=== PATIENT | male | born 1965 | race Caucasian/White ===

== ENCOUNTER 2019-05-14 10:19 | Outpatient (CLI) | payer OTHER, SELFPAY ==
--- NOTE | ~2019-05-14 | XR_ITS ---
XR chest 2V 05/14/2019 10:45 Indication: Acute bronchitis. Cough and wheezing. Procedure: 2 view chest Comparison: No prior studies for comparison. Findings: There is left basilar atelectasis. No focal pneumonia, edema or effusion. No pneumothorax. No acute osseous abnormality. Mild thoracic spondylosis. Impression: 1: Left basilar atelectasis. Reviewed, dictated and finalized at location A. Impression: 1: Left basilar atelectasis.
== END 2019-05-14 10:20 | disposition home or self-care (01) ==
LOC: CHSIMG 10:23
PROVIDERS: PCP Family Medicine; Visit Provider Family Medicine
DX: J20.9 Acute bronchitis, unspecified (principal)
CPT/HCPCS: 71046

== ENCOUNTER 2021-04-06 14:44 | Outpatient (CLI) | payer OTHER, SELFPAY ==
[2021-04-06 15:37] LABS: SARS-CoV-2 Ag Positive (Negative)
== END 2021-04-06 14:45 | disposition home or self-care (01) ==
LOC: CHSLAB 14:46
PROVIDERS: PCP Family Medicine; Visit Provider Nurse Practitioner Family
DX: U07.1 COVID-19 (principal); J06.9 Acute upper respiratory infection, unspecified
CPT/HCPCS: 87426; C9803

== ENCOUNTER 2023-08-28 10:43 | Outpatient (CLI) | payer OTHER, SELFPAY ==
--- NOTE | ~2023-08-28 | CT_ITS ---
EXAMINATION: CT soft tissue neck w con DATE: 08/28/2023 12:08 INDICATION: Throat mass. TECHNIQUE: Computed tomography (CT) of the neck was performed with 75 mL Omnipaque-350 intravenous co ntrast. Automated exposure control and iterative reconstruction technique were employed. The dose-lara gth product was 578.17 mGy-cm. COMPARISON: None FINDINGS: There is mild emphysema. There is asymmetric enlargement of right palatine tonsil. There is a 3.4 x 3.2 cm right high internal jugular chain lymph node. There is an 11 x 14 mm high right inter nal jugular chain lymph node. Partially visualized is lymphadenopathy in the aorticopulmonary window with the largest node measuring at least 2.1 x 1.2 cm. There is mucosal thickening in the paranasal s inuses. The mastoid air cells are normal. There is severe cervical spondylosis. IMPRESSION: 1. 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 Ultr asound-guided core needle biopsy is recommended. 2. Asymmetric enlargement of right palatine tonsil suspicious for primary malignancy. 3. Partially visualized mediastinal lymphadenopathy suspicious for metastatic disease. Chest CT with contrast is recommended. 4. Mild emphysema. Reviewed, dictated and finalized at location A. IMPRESSION: 1. High right internal jugular chain lymphadenopathy, likely metastatic squamou s cell carcinoma. Ultrasound-guided core needle biopsy is recommended. 2. Asymmetric enlargement of right palatine tonsil suspicious for primary malig suzanne. 3. Partially visualized mediastinal lymphadenopathy suspicious for metastatic d isease. Chest CT with contrast is recommended. 4. Mild emphysema.
[2023-08-28 11:24] LABS: Estimated Glomerular Filt Rate > 60
== END 2023-08-28 10:44 | disposition home or self-care (01) ==
PROVIDERS: PCP Family Medicine; Visit Provider Nurse Practitioner Family
DX: J39.2 Other diseases of pharynx (principal); R59.0 Localized enlarged lymph nodes; J35.1 Hypertrophy of tonsils; J43.9 Emphysema, unspecified
CPT/HCPCS: 70491; Q9967

== ENCOUNTER 2023-08-30 12:31 | Outpatient (CLI) | payer OTHER, SELFPAY ==
--- NOTE | ~2023-08-30 | CT_ITS ---
EXAMINATION: CT diagnostic chest w con DATE: 08/30/2023 13:04 INDICATION: METATSTATIC DISEASE OF NECK, ABNORMAL CT, BALATINE TONSIL MA TECHNIQUE: Computed tomography (CT) of the chest was performed with 100 mL Omnipaque-350 intravenous contrast. Additional 3D reconstructions utilizing coronal maximum intensity projection (MIP) were per formed. Automated exposure control and iterative reconstruction technique were employed. The dose-lara gth product was 284.64 mGy-cm. COMPARISON: None FINDINGS: Mild paraseptal and upper lung predominant emphysema. Mild groundglass opacities and some septal line thickening in the dependent lungs. Indeterminate 4-5 mm nodule at the lateral basilar left lower lob e. No pleural effusion. Heart size is normal. Small amount of atherosclerotic coronary artery calcifi c location. No pericardial effusion. There are enlarged mediastinal lymph nodes, the largest at the A P window measuring 3.1 x 2.9 cm which is concerning for metastatic disease or lymphoma. Thoracic aort a is normal in caliber with no dissection. Visualized upper abdomen is unremarkable. Moderate lower c ervical spondylosis with chronic mild anterior wedging at T8-L1. IMPRESSION: 1. Mediastinal lymphadenopathy measuring up to 3.1 x 2.9 cm concerning for malignancy either metastat ic or lymphoma. 2. Mild emphysema with indeterminate 4 x 5 mm left lower lobe nodule. Would recommend 1 year follow-u p low-dose noncontrast chest CT for further evaluation. 3. Mild groundglass opacities in the bilateral lower lobes and favor atelectasis over mild pulmonary edema or pneumonia. Reviewed, dictated and finalized at location B. IMPRESSION: 1. Mediastinal lymphadenopathy measuring up to 3.1 x 2.9 cm concerning for belinda gnancy either metastatic or lymphoma. 2. Mild emphysema with indeterminate 4 x 5 mm left lower lobe nodule. Would rec ommend 1 year follow-up low-dose noncontrast chest CT for further evaluation. 3. Mild groundglass opacities in the bilateral lower lobes and favor atelectasi s over mild pulmonary edema or pneumonia.
== END 2023-08-30 12:32 | disposition home or self-care (01) ==
LOC: CHSIMG 12:33
PROVIDERS: PCP Family Medicine; Visit Provider Family Medicine
DX: C77.0 Secondary and unspecified malignant neoplasm of lymph nodes of head, face and neck (principal); R93.89 Abnormal findings on diagnostic imaging of other specified body structures; J35.1 Hypertrophy of tonsils; R59.0 Localized enlarged lymph nodes; J43.9 Emphysema, unspecified; R91.1 Solitary pulmonary nodule; R91.8 Other nonspecific abnormal finding of lung field
CPT/HCPCS: 71260; Q9967